=== PATIENT | male | born 1990 | race African-American/Black ===

== ENCOUNTER 2016-07-05 23:15 | Emergency (ER) | payer BC ==
[~2016-07-05 23:15] MED LIST: ANEXSIA 5/325 M1 TA1 PO; BROMFED DM COU118 ML PO; EC-NAPROSYN500 MG PO; EXCEDRIN MIGRA1 EACH; FLEXERIL10 M1 PO; IBUPROFEN800 MG; IBUPROFEN800 MG PO; NAPROSYN500 MG PO; NO MEDICATIONS; VOLTAREN75 MG PO
== END 2016-07-06 00:15 | disposition home or self-care (01) ==
LOC: SED 23:15
DX: S60.561A Insect bite (nonvenomous) of right hand, initial encounter (principal); F41.9 Anxiety disorder, unspecified; F32.9 Major depressive disorder, single episode, unspecified; F17.200 Nicotine dependence, unspecified, uncomplicated; W57.XXXA Bitten or stung by nonvenomous insect and other nonvenomous arthropods, initial encounter
CPT/HCPCS: 99282

== ENCOUNTER 2016-08-25 19:00 | Emergency (ER) | payer BC ==
[2016-08-25] MEDS ORDERED: FLONASE 0.05% N16 G1 (19:41)
== END 2016-08-25 19:20 | disposition left against medical advice (07) ==
LOC: CED 19:00
DX: Z53.21 Procedure and treatment not carried out due to patient leaving prior to being seen by health care provider (principal)

== ENCOUNTER 2016-08-25 19:29 | Emergency (ER) | payer BC ==
[2016-08-25] MEDS ORDERED: FLONASE 0.05% N16 G1 (19:41)
== END 2016-08-25 20:24 | disposition home or self-care (01) ==
LOC: SED 19:29
DX: S29.012A Strain of muscle and tendon of back wall of thorax, initial encounter (principal); F41.9 Anxiety disorder, unspecified; F17.210 Nicotine dependence, cigarettes, uncomplicated; Z90.89 Acquired absence of other organs; Z79.1 Long term (current) use of non-steroidal anti-inflammatories (NSAID); Z79.899 Other long term (current) drug therapy; X50.0XXA Overexertion from strenuous movement or load, initial encounter; Y92.69 Other specified industrial and construction area as the place of occurrence of the external cause; Y99.0 Civilian activity done for income or pay
CPT/HCPCS: 99283

== ENCOUNTER 2016-08-26 09:27 | Emergency (ER) | payer BC ==
--- NOTE | ~2016-08-26 | CR72 ---
[facility]. [facility] A Service of [facility] & [facility] RADIOLOGY TEXT RESULTS PATIENT: SERGO GONZALEZ LOCATION: SED : [birth year] UNIT #: [id number] AGE: [address]: Geoff Carranza MD SEX: M ORDER DR: [id number] [address] [address] [id number] E MR#: [id number] #: [id number] NAME: SERGO GONZALEZ : 1990 SEX: M STUDY DATE/TIME: UNIT: SED ROOM: STUDY DESCRIPTION: CR Chest Single View Portable Attending Physician: Geoff Carranza M.D. Ordering Physician: Geoff Carranza M.D. Primary Care Physician: Primary Care Physician No MEDICAL IMAGING REPORT This report is preliminary unless electronic signature is present. EXAM Chest portable 08/26/2016 1100 hours HISTORY 25-year-old man with 1-day history of chest pain with back pain for 1 week in the upper lower back. No reported injury. COMPARISON 01/30/2014 FINDINGS Single upright portable view of the chest demonstrates normal cardiac, mediastinal, aortic contours. Lungs are well expanded and clear. There is no effusion, pneumothorax or bone lesion. IMPRESSION 1. No acute cardiopulmonary findings. 2. No bone lesion. No pleural effusion or pneumothorax. Dictated by... Kendra Reagan M.D. THIS IS AN ELECTRONICALLY VERIFIED REPORT Kendra Reagan M.D. at 08/27/2016 9:48 AM SMM/scott TD: 08/26/2016 19:21 JOB #: [id number] MEDICAL IMAGING REPORT Page 1 of 1
--- NOTE | ~2016-08-26 | EKG ---
PATIENT: SERGO GONZALEZ UNIT #: [id number] Ventricular Rate: 108 BPM Atrial Rate: 108 BPM P-R Interval: 138 ms QRS Duration: 80 ms Q-T Interval: 352 ms QTC Calculation(Bezet): 471 ms P Milam: 85 degrees Calculated R Milam: 89 degrees Calculated T Milam: 20 degrees Diagnosis Line: Sinus tachycardia Diagnosis Line: Otherwise normal ECG Diagnosis Line: When compared with ECG of 30-JAN-2014 10:49, Diagnosis Line: Vent. rate has increased BY 36 BPM Diagnosis Line: T wave inversion now evident in Inferior leads Diagnosis Line: QT has lengthened Diagnosis Line: Confirmed by KRYSTAL BARNES MD ([id number]) on Diagnosis Line: 08/28/2016 3:50:38 PM INTERPRETING MD: MOLLY MCKNIGHT
[~2016-08-26 09:27] MED LIST changes: +FLONASE 0.05% N16 G1
[2016-08-26 10:26] LABS: POC - CKMB 1.2 ng/mL (0.0-7.9); POC - TROPONIN <0.05 ng/mL (<=0.05)
[2016-08-26 10:44] LABS: BASOPHIL% 1.2 % (0-2.5); EOSINOPHIL# 0.2 X10e3 (0-0.7); EOSINOPHIL% 5.2 % (0.0-7.0); HEMATOCRIT 37.3 % (38.0-50.0); HEMOGLOBIN 12.9 gm/dL (13.0-16.0); LYMPHOCYTE% 26.8 % (17.0-45.0); MEAN CELL VOLUME 88.3 FL (83-96); MEAN CORPUSCULAR HEMOGLOBIN 30.5 PG (28-34); MEAN CORPUSCULAR HGB CONC 34.5 g/dL (30-36); MONOCYTE# 0.4 X10e3 (0-1.0); NEUTROPHIL# 2.1 X10e3 (1.5-7.1); NEUTROPHIL% 56.8 % (40-75); PLATELET COUNT 151 X10e3 (140-420); RED BLOOD COUNT 4.23 X10e (3.90-5.60); WHITE BLOOD COUNT 3.7 X10e3 (4.0-10.5)
[2016-08-26 10:55] LABS: ALBUMIN SERUM 5.4 g/dL (3.5-5.0); BILIRUBIN,TOTAL 0.8 mg/dL (0.2-2.0); BUN/CREATININE RATIO 21.11; CALCIUM SERUM 9.4 mg/dL (8.4-10.2); CREATININE SERUM 0.9 mg/dL (0.6-1.4); GLOM FILT RATE Estimated 135.2 mL/min (>60); POTASSIUM 3.1 mmol/L (3.5-5.1); PROTEIN TOTAL SERUM 7.6 g/dL (6.0-8.3)
[2016-08-26 11:32] LABS: DIFF IND NO
== END 2016-08-26 13:04 | disposition home or self-care (01) ==
LOC: SED 09:27
PROVIDERS: Emergency Medicine
DX: R07.9 Chest pain, unspecified (principal); E87.6 Hypokalemia; M79.1 Myalgia; F17.210 Nicotine dependence, cigarettes, uncomplicated; Z88.8 Allergy status to other drugs, medicaments and biological substances; Z88.6 Allergy status to analgesic agent
CPT/HCPCS: 36415; 71010; 80053; 82553; 84484; 85025; 93005; 99285